=== PATIENT | male | born 2000 | race African-American/Black ===

== ENCOUNTER 2022-02-02 13:53 | Emergency (ER) | payer OTHER, SELFPAY | END 2022-02-02 16:40 | disposition home or self-care (01) | LOC: CSHERS 13:53 | DX: S20.213A Contusion of bilateral front wall of thorax, initial encounter (principal); S16.1XXA Strain of muscle, fascia and tendon at neck level, initial encounter; V49.50XA Passenger injured in collision with unspecified motor vehicles in traffic accident, initial encounter | CPT/HCPCS: 71045; 72125 ==